=== PATIENT | male | born 1970 | race Caucasian/White ===

== ENCOUNTER 2018-04-21 06:20 | Emergency (ER) | payer OTHER ==
[2018-04-21 06:32] VITALS: TEMP 98.7
--- NOTE | 2018-04-21 06:36 | ED ---
General Adult HPI - General Chief complaint: Urogenital Stated complaint: IHS Poss Hernia Time Seen by Provider: 04/21/18 06:35 Source: patient Mode of arrival: ambulatory Limitations: no limitations - History of Present Illness Initial comments: Ronny is a 47-year-old gentle movement and presents to the emergency department today for evaluation of a bulge in his right groin. Patient works a physically demanding job he reports these regular lifting greater than 100 pounds at a time. He reports that this morning he was at work when he lifted up packages that he believe weighed between 100 and 110 pounds. When he did this he felt a bulge in his right groin felt somewhat warm. He denies any pain. He became concerned he may have a hernia so he came to the ER for further evaluation. She denies other complaints. The time of evaluation he reports that the sensation of warmth in the bulge has resolved. - Related Data Home Medications Medication Instructions Recorded Confirmed No Known Home Medications 04/21/18 04/21/18 Allergies Allergy/AdvReac Type Severity Reaction Status Date / Time Penicillins Allergy Rash/Hives Verified 04/21/18 06:56 Review of Systems ROS Statement: Those systems with pertinent positive or pertinent negative responses have been documented in the HPI. ROS Other: All systems not noted in ROS Statement are negative. Past Medical History Past Medical History: No Reported History History of Any Multi-Drug Resistant Organisms: None Reported Past Surgical History: No Surgical Hx Reported Past Psychological History: No Psychological Hx Reported Smoking Status: Current every day smoker Past Alcohol Use History: Occasional Past Drug Use History: None Reported General Exam - General Exam Comments Initial Comments: Physical Exam GENERAL: Patient is well-developed and well-nourished. Patient is nontoxic and well-hydrated and is in no distress. HENT: Normocephalic, Atraumatic. EYES: PERRL, EOMI PULMONARY: Unlabored respirations. CARDIOVASCULAR: Regular rate Warm and well perfused extremities ABDOMEN: Soft and nontender with normal bowel sounds. SKIN: Skin is clear with no lesions or rashes and otherwise unremarkable. : Normal external genitalia, bilateral testicles descended with no tenderness to palpation Small right inguinal hernia is palpable on exam, there is no extrusion of intra-abdominal contents through the hernia NEUROLOGIC: Patient is alert and oriented x3 MUSCULOSKELETAL: Normal extremities with adequate strength and full range of motion. No lower extremity swelling or edema. No calf tenderness. PSYCHIATRIC: Normal psychiatric evaluation. Limitations: no limitations Limitations: no limitations Course Vital Signs 04/21/18 04/21/18 06:29 07:04 Temperature 98.7 F Pulse Rate 98 67 Respiratory 18 16 Rate Blood Pressure 141/87 134/86 O2 Sat by Pulse 97 Oximetry Medical Decision Making - Medical Decision Making Patient was seen and evaluated history is obtained from the patient since the relatively healthy 47-year-old male who regularly lifts very heavy objects today he noticed a bulge and some warmth in his right groin while lifting 100 pound package On exam the patient does have a reducible right inguinal hernia Diagnosis of reducible right inguinal hernia was discussed with the patient. I advised him to avoid lifting heavy packages. Advised him he will require outpatient follow-up with a general surgeon for discussion of possible repair of this inguinal hernia. In addition I advised the patient that if he develops any pain or bulge that he cannot reduce by laying down he needs come the ER for reevaluation. We did discuss types of hernia including reducible, incarcerated and strain related. We did discuss the possibility of surgical emergency of the hernia does become incarcerated or straining related. The importance of close follow-up was stressed to the patient. Patient was discharged home stable condition with referrals to multiple surgeons for outpatient follow-up. Disposition Clinical Impression: Inguinal hernia Disposition: HOME SELF-CARE Condition: Good Instructions (If sedation given, give patient instructions): Inguinal Hernia (ED) Is patient prescribed a controlled substance at d/c from ED?: No Referrals: None,Stated [Primary Care Provider] - 1-2 days Magdy Burleson MD [STAFF PHYSICIAN] - 1-2 days Mariano Aparicio MD [Medical Doctor] - 1-2 days Carter Seals DO [Doctor of Osteopathic Medicine] - 1-2 days
[2018-04-21 07:10] VITALS: BP 134/86; PULSE 67; RESP 16
== END 2018-04-21 07:04 | disposition home or self-care (01) ==
LOC: EC 06:20
DX: K40.90 Unilateral inguinal hernia, without obstruction or gangrene, not specified as recurrent (principal); F17.200 Nicotine dependence, unspecified, uncomplicated; Z88.0 Allergy status to penicillin; X50.0XXA Overexertion from strenuous movement or load, initial encounter; Y92.69 Other specified industrial and construction area as the place of occurrence of the external cause; Y99.0 Civilian activity done for income or pay
CPT/HCPCS: 99283

== ENCOUNTER 2018-05-11 07:19 | Day surgery (SDC) | payer OTHER ==
[2018-05-03 12:04] VITALS: BMI 25.0
[~2018-05-11 07:19] MED LIST: DEXAMETHASONE SOD PHOSPHATE 10 MG/ML 1 ML VIAL IV ONE; HEPARIN SODIUM,PORCINE 5,000 UNIT/ML 1 ML VIAL SQ ONE; HYDROmorphone 0.5 MG/0.5 ML SYRINGE IVP PRN; MIDAZOLAM 2 MG/2 ML VIAL IV PRN; ONDANSETRON 4 MG/2 ML VIAL IVP ONE; SCOPOLAMINE 1.5MG/72HR PATCH TRANSDERM ONE; ceFAZolin IN SWFI 2 GM/20 ML SYRINGE IVP ONE
[2018-05-11 08:04] VITALS: RESP 16
[2018-05-11] MEDS: LIDOCAINE 1% 20 ML VIAL (10MG/ML) FOR IV START INTRADERMA PRN ×2 (08:17→08:18)
[2018-05-11] MEDS: LACTATED RINGERS 1,000 ML IV SCH ×2 (08:17→08:18)
--- NOTE | 2018-05-11 08:41 | P.GSHP ---
History of Present Illness H&P Date: 05/11/18 Chief Complaint: Right inguinal hernia This a 47 she'll male who's developed a reducible right we'll hernia. Patient resents today for laparoscopic robotic-assisted repair. Past Medical History Past Medical History: No Reported History Additional Past Medical History / Comment(s): HERNIA History of Any Multi-Drug Resistant Organisms: None Reported Past Surgical History: Hernia Repair Additional Past Surgical History / Comment(s): HERNIA REPAIR SMALL CHILD- ABOUT AGE 6 Past Anesthesia/Blood Transfusion Reactions: No Reported Reaction Smoking Status: Current every day smoker - Past Family History Mother Family Medical History: No Reported History Medications and Allergies Home Medications Medication Instructions Recorded Confirmed Type No Known Home Medications 04/21/18 05/11/18 History Allergies Allergy/AdvReac Type Severity Reaction Status Date / Time Penicillins Allergy Rash/Hives Verified 05/11/18 07:57 Surgical - Exam Vital Signs Temp Pulse Resp BP Pulse Ox 98.6 F 76 16 119/77 97 05/11/18 08:02 05/11/18 08:02 05/11/18 08:02 05/11/18 08:02 05/11/18 08:02 - General well developed, well nourished, no distress - Eyes PERRL - ENT normal pinna - Neck no masses - Respiratory normal expansion - Cardiovascular Rhythm: regular - Abdomen Abdomen: soft, non tender Hernia: reducible (Reducible right inguinal hernia) Assessment and Plan Assessment: Right inguinal hernia. We'll perform laparoscopic robotic-assisted repair.
--- NOTE | 2018-05-11 08:47 | P.GSHP ---
History of Present Illness H&P Date: 05/11/18 Chief Complaint: Right inguinal hernia This is a 47-year-old male who presents today for laparoscopic robotic system repair of right inguinal hernia. Patient developed a tender mass in his right groin. Past Medical History Past Medical History: No Reported History Additional Past Medical History / Comment(s): HERNIA History of Any Multi-Drug Resistant Organisms: None Reported Past Surgical History: Hernia Repair Additional Past Surgical History / Comment(s): HERNIA REPAIR SMALL CHILD- ABOUT AGE 6 Past Anesthesia/Blood Transfusion Reactions: No Reported Reaction Smoking Status: Current every day smoker - Past Family History Mother Family Medical History: No Reported History Medications and Allergies Home Medications Medication Instructions Recorded Confirmed Type No Known Home Medications 04/21/18 05/11/18 History Allergies Allergy/AdvReac Type Severity Reaction Status Date / Time Penicillins Allergy Rash/Hives Verified 05/11/18 07:57 Surgical - Exam Vital Signs Temp Pulse Resp BP Pulse Ox 98.6 F 76 16 119/77 97 05/11/18 08:02 05/11/18 08:02 05/11/18 08:02 05/11/18 08:02 05/11/18 08:02 - General well developed, well nourished, no distress - Eyes PERRL - ENT normal pinna - Neck no masses - Respiratory normal expansion - Cardiovascular Rhythm: regular - Abdomen Abdomen: soft, non tender Hernia: inguinal (right reducible inguinal hernia) Assessment and Plan Assessment: Inguinal hernia. We'll perform laparoscopic robotic-assisted repair.
[2018-05-11] MEDS ORDERED: SUCCINYLCHOLINE CHLORIDE 100 MG/5 ML SYR IV ONE (09:06)
[2018-05-11] MEDS ORDERED: LIDOCAINE 2%-EPI 1:100,000 20 ML VIAL ONE (09:06)
[2018-05-11] MEDS ORDERED: ROCURONIUM BROMIDE 10 MG/ML 10 ML VIAL IV ONE (09:06)
[2018-05-11] MEDS ORDERED: KETOROLAC 30 MG/ML 1 ML VIAL ONE (09:06)
[2018-05-11] MEDS ORDERED: NEOSTIGMINE 1 MG/ML 10 ML VIAL ONE (09:06)
[2018-05-11] MEDS ORDERED: fentaNYL (PF) 50 MCG/ML 2 ML AMP ONE (09:06)
[2018-05-11] MEDS ORDERED: MIDAZOLAM 2 MG/2 ML VIAL ONE (09:06)
[2018-05-11] MEDS ORDERED: ROPIVACAINE 5 MG/ML 30 ML VIAL ONE (09:06)
[2018-05-11] MEDS ORDERED: GLYCOPYRROLATE 0.2 MG/ML 2 ML VIAL ONE (09:06)
[2018-05-11] MEDS ORDERED: PROPOFOL 10 MG/ML 20 ML VIAL IV ONE (09:06)
[2018-05-11] MEDS ORDERED: LIDOCAINE 1% INJ 10MG/ML (20 ML MDV) ONE (09:06)
[2018-05-11] MEDS ORDERED: BUPIVACAIN-EPI 0.5%-1:200,000 30 ML VIAL SQ ONE (09:38)
--- NOTE | 2018-05-11 10:14 | P.OP ---
Date of Procedure: 05/11/18 Preoperative Diagnosis: Right inguinal hernia Postoperative Diagnosis: Right inguinal hernia Procedure(s) Performed: Laparoscopic robotic system repair of right inguinal hernia Anesthesia: YANET Surgeon: Magdy Burleson Estimated Blood Loss (ml): 5 Pathology: none sent Condition: stable Disposition: PACU Description of Procedure: The patient's placed on the operating table in the supine position. The patient received general anesthesia. The patient's abdomen was prepped and draped in usual sterile fashion. The skin was anesthetized 1% local Xylocaine at the incision sites. Using an 11 blade a skin incision was made at the umbilicus. The fascia was grasped with a [place] and then the peritoneal cavity was entered with the Veress needle. Position of the Veress needle was confirmed with a positive drop test. After adequate insufflation a 5 mm trocar was placed into the peritoneal cavity. The Laparoscope was placed the peritoneal cavity. And a robotic 8 mm trocar was placed in the right lateral position and then another 8 mm robotic trochars placed in the left lateral position. The original 5 mm trocar was exchanged for a 12 mm trocar. The patient was placed in reverse Trendelenburg and then the patient was docked to the robot. Next the peritoneum over top of the hernia was incised and then using blunt and sharp dissection and electrocautery the hernia sac was dissected free from the floor of the inguinal canal. The hernia sac was completely reduced into the peritoneal cavity. And then using the Pro activated sludge attendant mesh the hernia was repaired. The peritoneum was then sutured with 20V lock suture. The patient was then undocked the robot. The needle was withdrawn from the peritoneal cavity. The umbilical trocar site was closed with 0 Ethibond suture. The skin was closed interrupted 3-0 Monocryl suture. Dermabond dressing was applied. Patient was sent to recovery in stable condition.
[2018-05-11 10:26] VITALS: TEMP 97
--- NOTE | 2018-05-11 11:23 | P.ONQ ---
Anesthesiology Proc Note - PNB - Peripheral Nerve Block Performed Right Transversus Abdominis Single Time Out Performed: Yes Procedure Start Time: 08:35 Procedure Stop Time: 08:39 Indication: Acute Post-Operative Pain, Analgesia, Requested by physician Sedation Type: Sedate with meaningful contact maintained Preparation: Sterile Prep Position: Supine Needle Size: 50mm (2") Needle Gauge: 21 Technique: Ultrasound Injectate: 0.5% Ropivacaine (see comment for volume) (ropi .5% 20cc plus xylo 2% 10cc) Blood Aspirated: No Pain Paresthesia on Injection Noted: No Resistance on Injection: Normal Events: Uneventful and Well Tolerated
[2018-05-11 12:29] VITALS: BP 121/70; PULSE 75
== END 2018-05-11 12:35 | disposition home or self-care (01) ==
LOC: OR 07:19
PROVIDERS: ATTEND Surgery
DX: K40.90 Unilateral inguinal hernia, without obstruction or gangrene, not specified as recurrent (principal); F17.210 Nicotine dependence, cigarettes, uncomplicated; Z88.0 Allergy status to penicillin
CPT/HCPCS: 49650; S2900; 64486

== ENCOUNTER 2021-09-08 14:08 | Emergency (ER) | payer OTHER ==
[2021-09-08 14:13] VITALS: RESP 18; TEMP 98.2
[2021-09-08 14:55] LABS: Basophils % (A) 0 %; Eosinophils # (A) 0.1 k/uL (0-0.7); Eosinophils % (A) 1 %; HCT 45.8 % (39.0-53.0); HGB 15.5 gm/dL (13.0-17.5); Lymphocytes # (A) 1.5 k/uL (1.0-4.8); Lymphocytes % (A) 13 %; MCH 30.1 pg (25.0-35.0); MCHC 33.7 g/dL (31.0-37.0); MCV 89.4 fL (80.0-100.0); Monocytes # (A) 0.5 k/uL (0-1.0); Monocytes % (A) 5 %; Neutrophils # (A) 9.6 k/uL (1.3-7.7); Neutrophils % (A) 81 %; Platelet Count 235 k/uL (150-450); RBC 5.13 m/uL (4.30-5.90); RDW 12.6 % (11.5-15.5); WBC 11.9 k/uL (3.8-10.6)
[2021-09-08 15:05] LABS: Calcium 9.4 mg/dL (8.4-10.2); Potassium 4.7 mmol/L (3.5-5.1)
[2021-09-08 15:20] LABS: Appearance,Urine Clear (Clear); Bilirubin,Urine Negative (Negative); Blood,Urine Large (Negative); Color,Urine Yellow; Glucose,Urine (UA) Negative (Negative); Ketones,Urine Trace (Negative); Leukocyte Esterase,Urine Trace (Negative); Mucus,Urine Few /hpf; Nitrite,Urine Negative (Negative); PH, Urine 5.5 (5.0-8.0); Protein,Urine 1+ (Negative); RBC,Urine >182 /hpf (0-5); Specific Gravity,Urine 1.031 (1.001-1.035); Squamous Epithelial Cell,Urine <1 /hpf (0-4); WBC,Urine <1 /hpf (0-5)
--- NOTE | 2021-09-08 15:46 | US ---
EXAMINATION TYPE: US groin RT DATE OF EXAM: 09/08/2021 COMPARISON: NONE CLINICAL HISTORY: pain. No ultrasound evidence of hernia in right groin. IMPRESSION: Exam fails to demonstrate a sign of right inguinal hernia.
--- NOTE | 2021-09-08 15:58 | US ---
EXAMINATION TYPE: US scrotum with doppler. Grayscale and color Doppler Duplex imaging performed of t david scrotum. DATE OF EXAM: 09/08/2021 COMPARISON: NONE CLINICAL HISTORY: pain. EXAM MEASUREMENTS: TESTICLES: Right Testicle: 5.2 x 2.0 x 2.9 cm Left Testicle: 5.2 x 2.0 x 2.6 cm EPIDIDYMIS HEAD: Right Epididymis: 1.4 cm Left Epididymis: 1.2 cm Doppler performed to assess for testicular vascularity; good bilateral color flow and waveforms are s een. There is no evidence of testicular torsion. Presence of hydroceles: no Presence of varicoceles: no IMPRESSION: Normal scrotal ultrasound exam. No testicular torsion or mass.
--- NOTE | 2021-09-08 16:30 | CT ---
EXAMINATION TYPE: CT abdomen pelvis wo con DATE OF EXAM: 09/08/2021 COMPARISON: None HISTORY: Rt flank pain CT DLP: 578.6 mGycm Automated exposure control for dose reduction was used. Images obtained from the diaphragm to the floor the pelvis with no contrast. The lung bases are clear. No pleural effusion. Heart size is normal. No pericardial effusion. There are numerous small cysts throughout the liver that measure up to 2 cm. The bile ducts are not d ilated. Spleen is intact. No pancreatic mass. Gallbladder appears normal. Stomach is intact. There is no adrenal mass. There is right-sided hydronephrosis with obstructing 4 mm calculus at the u reteropelvic junction. There are 2 small calculi in the left kidney up to 3 mm. Ureters are not dilat ed. There is no retroperitoneal adenopathy. The bladder distends smoothly. No pelvic mass. No free fluid in the pelvis. There is no inguinal concepción ia. There is no mesenteric edema. No ascites or free air. No sign of a bowel obstruction appendix not see n. No sign of thickened appendix. The lumbar vertebrae have normal alignment. No compression fracture. Bony pelvis is intact. The hip j oints are intact. IMPRESSION: Obstructing calculus at the right ureteropelvic junction with hydronephrosis. Nonobstructing left renal calculi.
[2021-09-08] MEDS ORDERED: ACET/COD 300 MG/30 MG STARTER PACK 6 TAB BTL PO STA (16:43)
--- NOTE | 2021-09-08 16:43 | ED ---
Abdominal Pain HPI - General Chief Complaint: Abdominal Pain Stated Complaint: Hernia Time Seen by Provider: 09/08/21 14:18 Source: patient, family, RN notes reviewed Mode of arrival: ambulatory Limitations: no limitations - History of Present Illness Initial Comments: 51-year-old male presents emergency Department chief complaint right sided scrotal pain, abdominal pain. Patient states that his been having symptoms last 3 days progressively worsening. The do alleviated throughout the day. Patient states that he does have history of hernia repair is concerned about this. Patient states he has no dysuria no fevers or chills no nausea vomiting time did have some nausea, vomiting today. Patient denies any other associated complaints. - Related Data Previous Rx's Medication Instructions Recorded Docusate [Colace] 100 mg PO BID #20 capsule 05/11/18 HYDROcodone/APAP 7.5-325MG [Omega 1 tab PO Q6HR PRN 3 Days #10 tab 05/11/18 7.5-325] Ketorolac [Toradol] 10 mg PO Q8HR #15 tab 09/08/21 Tamsulosin [Flomax] 0.4 mg PO DAILY #7 cap 09/08/21 Allergies Allergy/AdvReac Type Severity Reaction Status Date / Time Penicillins Allergy Rash/Hives Verified 09/08/21 14:12 Review of Systems ROS Statement: Those systems with pertinent positive or pertinent negative responses have been documented in the HPI. ROS Other: All systems not noted in ROS Statement are negative. Past Medical History Past Medical History: No Reported History Additional Past Medical History / Comment(s): HERNIA History of Any Multi-Drug Resistant Organisms: None Reported Past Surgical History: Hernia Repair Additional Past Surgical History / Comment(s): HERNIA REPAIR SMALL CHILD- ABOUT AGE 6 Past Anesthesia/Blood Transfusion Reactions: No Reported Reaction Past Psychological History: No Psychological Hx Reported Smoking Status: Current every day smoker Past Alcohol Use History: Occasional Past Drug Use History: None Reported - Past Family History Mother Family Medical History: No Reported History General Exam Limitations: no limitations General appearance: alert, in no apparent distress Head exam: Present: atraumatic, normocephalic, normal inspection Eye exam: Present: normal appearance, PERRL, EOMI. Absent: scleral icterus, conjunctival injection, periorbital swelling ENT exam: Present: normal exam, normal oropharynx, mucous membranes moist Neck exam: Present: normal inspection, full ROM. Absent: tenderness, meningismus, lymphadenopathy Respiratory exam: Present: normal lung sounds bilaterally. Absent: respiratory distress, wheezes, rales, rhonchi, stridor Cardiovascular Exam: Present: regular rate, normal rhythm, normal heart sounds. Absent: systolic murmur, diastolic murmur, rubs, gallop, clicks GI/Abdominal exam: Present: soft, normal bowel sounds. Absent: distended, tenderness, guarding, rebound, rigid exam: Present: normal inspection. Absent: testicular tenderness Back exam: Absent: CVA tenderness (R), CVA tenderness (L) Course Vital Signs 09/08/21 14:09 Temperature 98.2 F Pulse Rate 98 Respiratory 18 Rate Blood Pressure 128/81 O2 Sat by Pulse 95 Oximetry Medical Decision Making - Medical Decision Making Patient's initial workup including ultrasound, labs which shows evidence of hematuria CT is obtained given hematuria no history kidney stones CT does show evidence of 4 mm UPJ stone. Patient will follow-up with urology we discharged stable condition return parameters were discussed. - Lab Data Result diagrams: 09/08/21 14:40 09/08/21 14:40 Lab Results 09/08/21 09/08/21 09/08/21 Range/Units 14:40 14:40 14:40 WBC 11.9 H (3.8-10.6) k/uL RBC 5.13 (4.30-5.90) m/uL Hgb 15.5 (13.0-17.5) gm/dL Hct 45.8 (39.0-53.0) % MCV 89.4 (80.0-100.0) fL MCH 30.1 (25.0-35.0) pg MCHC 33.7 (31.0-37.0) g/dL RDW 12.6 (11.5-15.5) % Plt Count 235 (150-450) k/uL MPV 8.0 Neutrophils % 81 % Lymphocytes % 13 % Monocytes % 5 % Eosinophils % 1 % Basophils % 0 % Neutrophils # 9.6 H (1.3-7.7) k/uL Lymphocytes # 1.5 (1.0-4.8) k/uL Monocytes # 0.5 (0-1.0) k/uL Eosinophils # 0.1 (0-0.7) k/uL Basophils # 0.0 (0-0.2) k/uL Sodium 138 (137-145) mmol/L Potassium 4.7 (3.5-5.1) mmol/L Chloride 106 (98-107) mmol/L Carbon Dioxide 25 (22-30) mmol/L Anion Gap 7 mmol/L BUN 14 (9-20) mg/dL Creatinine 1.21 (0.66-1.25) mg/dL Est GFR (CKD-EPI)AfAm 81 (>60 ml/min/1.73 sqM) Est GFR (CKD-EPI)NonAf 70 (>60 ml/min/1.73 sqM) Glucose 100 H (74-99) mg/dL Plasma Lactic Acid Chucho (0.7-2.0) mmol/L Calcium 9.4 (8.4-10.2) mg/dL Urine Color Yellow Urine Appearance Clear (Clear) Urine pH 5.5 (5.0-8.0) Ur Specific Morrison 1.031 (1.001-1.035) Urine Protein 1+ H (Negative) Urine Glucose (UA) Negative (Negative) Urine Ketones Trace H (Negative) Urine Blood Large H (Negative) Urine Nitrite Negative (Negative) Urine Bilirubin Negative (Negative) Urine Urobilinogen 2.0 (<2.0) mg/dL Ur Leukocyte Esterase Trace H (Negative) Urine RBC >182 H (0-5) /hpf Urine WBC <1 (0-5) /hpf Ur Squamous Epith Cells <1 (0-4) /hpf Urine Mucus Few H (None) /hpf 09/08/21 Range/Units 14:40 WBC (3.8-10.6) k/uL RBC (4.30-5.90) m/uL Hgb (13.0-17.5) gm/dL Hct (39.0-53.0) % MCV (80.0-100.0) fL MCH (25.0-35.0) pg MCHC (31.0-37.0) g/dL RDW (11.5-15.5) % Plt Count (150-450) k/uL MPV Neutrophils % % Lymphocytes % % Monocytes % % Eosinophils % % Basophils % % Neutrophils # (1.3-7.7) k/uL Lymphocytes # (1.0-4.8) k/uL Monocytes # (0-1.0) k/uL Eosinophils # (0-0.7) k/uL Basophils # (0-0.2) k/uL Sodium (137-145) mmol/L Potassium (3.5-5.1) mmol/L Chloride (98-107) mmol/L Carbon Dioxide (22-30) mmol/L Anion Gap mmol/L BUN (9-20) mg/dL Creatinine (0.66-1.25) mg/dL Est GFR (CKD-EPI)AfAm (>60 ml/min/1.73 sqM) Est GFR (CKD-EPI)NonAf (>60 ml/min/1.73 sqM) Glucose (74-99) mg/dL Plasma Lactic Acid Chucho 0.8 (0.7-2.0) mmol/L Calcium (8.4-10.2) mg/dL Urine Color Urine Appearance (Clear) Urine pH (5.0-8.0) Ur Specific [place] (1.001-1.035) Urine Protein (Negative) Urine Glucose (UA) (Negative) Urine Ketones (Negative) Urine Blood (Negative) Urine Nitrite (Negative) Urine Bilirubin (Negative) Urine Urobilinogen (<2.0) mg/dL Ur Leukocyte Esterase (Negative) Urine RBC (0-5) /hpf Urine WBC (0-5) /hpf Ur Squamous Epith Cells (0-4) /hpf Urine Mucus (None) /hpf Disposition Clinical Impression: Obstruction of right ureteropelvic junction (UPJ) due to stone Disposition: HOME SELF-CARE Condition: Stable Instructions (If sedation given, give patient instructions): Kidney Stones (ED) Additional Instructions: Please return to the Emergency Department if symptoms worsen or any other concerns. Prescriptions: Tamsulosin [Flomax] 0.4 mg PO DAILY #7 cap Ketorolac [Toradol] 10 mg PO Q8HR #15 tab Is patient prescribed a controlled substance at d/c from ED?: No Referrals: None,Stated [Primary Care Provider] - 1-2 days Kameron Sanchez MD [STAFF PHYSICIAN] - 1-2 days Time of Disposition: 16:43
[2021-09-08 16:59] VITALS: BP 121/74; PULSE 87
== END 2021-09-08 16:59 | disposition home or self-care (01) ==
LOC: EC 14:08
DX: N13.2 Hydronephrosis with renal and ureteral calculous obstruction (principal); F17.200 Nicotine dependence, unspecified, uncomplicated; Z88.0 Allergy status to penicillin
CPT/HCPCS: 36415; 74176; 76870; 80048; 81001; 83605; 85025; 93975; 99284

== ENCOUNTER → 2021-09-23 | Outpatient (CLI) | payer OTHER ==
--- NOTE | 2021-09-23 15:49 | XR ---
EXAMINATION TYPE: XR KUB DATE OF EXAM: 09/23/2021 COMPARISON: CT abdomen pelvis 09/08/2021. HISTORY: N20.1 calculus-ureter. TECHNIQUE: Single KUB image of the abdomen is obtained with 2 radiographs. FINDINGS: Small bowel demonstrates no evidence for dilatation or air fluid levels. Gas and fecal material is seen in non-distended colon. No definitive calcifications demonstrated in the region of both kidneys. There is a 3 mm calculus in the region of the right pelvis. No pelvic phleboliths identified in this region on prior CT. The lung bases are clear. The osseous structures are intact. IMPRESSION: 3 mm calculus in the region of the right pelvis in expected location of the right ureterovesical junc tion.
== END | disposition home or self-care (01) ==
LOC: RADXRMAIN 14:55
PROVIDERS: ATTEND Urology
DX: N20.1 Calculus of ureter (principal)
CPT/HCPCS: 74018

== ENCOUNTER → 2021-10-10 | Outpatient (CLI) | payer OTHER ==
--- NOTE | 2021-10-10 15:00 | XR ---
EXAMINATION TYPE: XR KUB DATE OF EXAM: 10/10/2021 HISTORY: N20.1 Calculus Ureter Comparison: None. Technique: Single KUB is submitted for interpretation. Findings: Right renal calculi: None Visualized. Right ureteral calculi: None visualized. Left renal calculi: None Visualized. Left ureteral calculi: None Visualized. Pelvic calcifications: There is a 3 mm calculus overlies the coccyx which likely represents previous ly seen right uterovesical junction calculus Bowel gas pattern is unremarkable. No free air. No mass effects. IMPRESSION: 3 mm calculus overlies the coccyx which likely represents previously seen right ureterove sical junction calculus. This is favored to be within the urinary bladder.
[2021-10-10 19:46] LABS: Appearance,Urine Clear (Clear); Bilirubin,Urine Negative (Negative); Blood,Urine Negative (Negative); Color,Urine Yellow (Yellow); Ketones,Urine Trace mg/dL (Negative); Nitrite,Urine Negative (Negative); PH, Urine 5.5 (5.0-8.0); Specific Gravity,Urine 1.022 (1.001-1.030); Urobilinogen,Urine 0.2 (0.2,1.0)
== END | disposition home or self-care (01) ==
LOC: RADXRMAIN 14:26
PROVIDERS: ATTEND Urology
DX: N20.1 Calculus of ureter (principal)
CPT/HCPCS: 74018; 81003; 87086